=== PATIENT | female | born 1980 | race Caucasian/White ===

== ENCOUNTER 2016-07-22 20:26 | Emergency (ER) | payer SELFPAY | END 2016-07-22 21:06 | disposition home or self-care (01) | LOC: NAV ERS 20:26 | DX: J01.90 Acute sinusitis, unspecified (principal); I10 Essential (primary) hypertension | CPT/HCPCS: 99283 ==

== ENCOUNTER 2024-01-06 22:01 | Emergency (ER) | payer SELFPAY ==
[2024-01-06] MEDS ORDERED: guaiFENesin ER 600 MG TAB ONE (22:55)
[2024-01-06] MEDS ORDERED: Acetaminophen 500 MG TAB ONE (22:55)
[2024-01-06] MEDS ORDERED: Amoxicillin/Potassium Clav 875 MG TAB ONE (22:55)
[2024-01-07 20:33] LABS: SARS-CoV-2 N1 Negative; SARS-CoV-2 N2 Negative; SARS-CoV-2 RNAse P1 Positive; SARS-CoV-2 RNAse P2 Positive
== END 2024-01-06 23:11 | disposition home or self-care (01) ==
LOC: NAV ERS 22:01
DX: J01.90 Acute sinusitis, unspecified (principal); E11.9 Type 2 diabetes mellitus without complications; B96.89 Other specified bacterial agents as the cause of diseases classified elsewhere
CPT/HCPCS: 87635; 87804; 99284